=== PATIENT | male | born 1985 | race Caucasian/White ===

== ENCOUNTER 2019-06-11 08:37 | Emergency (ER) | payer SELFPAY ==
[~2019-06-11] VITALS: Ht 182.9 cm; Wt 95.5 kg
[2019-06-11 08:41] VITALS: BP 128/77; Ht 182.9 cm; Wt 95.5 kg
== END 2019-06-11 09:02 | disposition home or self-care (01) ==
LOC: D.ER 08:37
DX: Z00.00 Encounter for general adult medical examination without abnormal findings (principal)